=== PATIENT | female | born 1945 | race Hispanic/Latino ===

== ENCOUNTER 2016-10-22 09:18 | Observation (INO) | payer MEDICARE ==
[~2016-10-22] VITALS: Ht 157.5 cm; Wt 93.9 kg
[~2016-10-22 09:18] MED LIST: AUGMENTIN875TAB PO; CLARITIN10 MG PO; CRESTOR40 MG OR; DEPAKOTE ER500 MG OR; DIFLUCAN150 MG PO; DIVALPROEX SOD500 M2 PO; EFFEXOR XR150 MG OR; FERROUS SULF325 M2 OR; FLONASE NASAL50 MCG; HYDROCHLOROT12.5 M1 OR; KETOCONAZOLE2 % EX; LEVETIRACETAM500 MG PO; LEXAPRO20 MG OR; LISINOPRIL20 MG PO; LORTAB 5 OR; METFORMIN1000 MG PO; METFORMIN500 M1 OR; METFORMIN850 MG PO; MIRTAZAPINE15 MG PO; MIRTAZAPINE45 M1 PO; MYRBETRIQ50 MG PO; NAPROSYN500 MG PO; NYSTATIN100000 M2 EX; NYSTATIN100000 M3 TOP; NYSTATIN100000 M4 TOP; PHENOBARB64.8 MG OR; PHENOBARB64.8 MG PO; PHENOBARB97.2 MG OR; PHENYTOIN EX300 MG OR; PROPRANOLOL80 M1 OR; RISPERDAL0.25 MG OR; RISPERDAL0.5 MG PO; RISPERIDONE0.5 MG PO; SERTRALINE50 MG OR; SIMVASTATIN40 MG PO; TERBINAFINE250 M1 OR; TOVIAZ8 MG PO; TRAZODONE50 MG OR; TRIHEXYPHEN2 MG PO; VENLAFAXINE HC150 M1 PO; VENLAFAXINE HCL75 M2 PO; VENLAFAXINE75 MG OR; VESICARE10 MG OR; VESICARE10 MG PO; ZESTRIL10 M1 OR
[2016-10-22] MEDS ORDERED: FAMOTIDINE20 M1 PO (09:40)
[2016-10-22] MEDS ORDERED: FLUOXETINE10 M2 PO (09:41)
[2016-10-22 09:48] LABS: HEMATOCRIT 36.2 % (37.0-47.0); HEMOGLOBIN 11.5 g/dl (12.0-16.0); IMMATURE GRANULOCYTES 0.4 % (0.0-1.0); MEAN CELL VOLUME 90.3 fL CALC (80.0-100.0); MEAN CORPUSCULAR HGB 28.7 pG CALC (26.0-32.0); MEAN CORPUSCULAR HGB CONC 31.8 g/L CALC (32.0-36.0); NEUT# 1.71 thou/uL (2.00-7.15); RED BLOOD COUNT 4.01 mill/uL (4.20-5.60); RED CELL DISTRI WIDTH 13.4 % (11.5-15.5)
[2016-10-22 10:08] LABS: ALBUMIN 3.7 g/dL (3.2-5.0); ALKALINE PHOSPHATASE 49 u/l (38-126); ANION GAP 16 (6-22 (CALC)); BILIRUBIN, TOTAL 0.5 mg/dL (0.0-1.4); BUN 20 mg/dL (8-23); BUN/CREATININE RATIO 35 (12-20 (CALC)); CARBON DIOXIDE 25 mmol/l (22-30); CHLORIDE 104 mmol/l (95-108); CREATININE 0.6 mg/dL (0.5-1.0); GFR > 60 ML/MIN (>=60 (CALC)); GFR FOR AFR.AMER. > 60 ML/MIN (>=60 (CALC)); GLUCOSE 106 mg/dL (82-115); POTASSIUM 4.3 mmol/l (3.5-5.1); SGOT/AST 20 u/l (9-36); SGPT/ALT 15 u/l (11-66); SODIUM 140 mmol/l (137-146); TOTAL PROTEIN 7.5 g/dL (6.3-8.2)
[2016-10-22 10:20] LABS: MYOGLOBIN 36 ng/mL (0 - 62)
[2016-10-22] MEDS ORDERED: PRAVASTATIN10 MG PO (10:44)
[2016-10-22 12:17] VITALS: BP 152/76
[2016-10-22 19:30] VITALS: BP 148/72
[2016-10-22 23:50] VITALS: BP 156/86
[2016-10-23 04:25] VITALS: BP 157/72
[2016-10-23 08:02] VITALS: BP 164/79
[2016-10-23 10:21] VITALS: BP 158/75
[2016-10-23] MEDS ORDERED: AMLODIPINE BESYL5 MG PO (11:59)
[2016-10-23 12:30] VITALS: BP 134/71
== END 2016-10-23 15:07 | disposition home or self-care (01) ==
LOC: ENPENDDIS → ED 09:18 → ED-I 10:21 → ED 10:38 → MS2 10:39
PROVIDERS: Emergency Medicine; ADMIT Internal Medicine; ATTEND Internal Medicine
DX: R07.9 Chest pain, unspecified (principal); I10 Essential (primary) hypertension; E11.9 Type 2 diabetes mellitus without complications; E78.5 Hyperlipidemia, unspecified; F32.9 Major depressive disorder, single episode, unspecified; I25.10 Atherosclerotic heart disease of native coronary artery without angina pectoris; G40.909 Epilepsy, unspecified, not intractable, without status epilepticus; H91.90 Unspecified hearing loss, unspecified ear; F41.9 Anxiety disorder, unspecified; R06.02 Shortness of breath; Z79.84 Long term (current) use of oral hypoglycemic drugs

== ENCOUNTER 2017-02-15 14:21 | Emergency (ER) | payer MEDICARE ==
[~2017-02-15] VITALS: Ht 157.5 cm; Wt 108.0 kg
[~2017-02-15 14:21] MED LIST changes: +AMLODIPINE BESYL5 MG PO; +FAMOTIDINE20 M1 PO; +FLUOXETINE10 M2 PO; +PRAVASTATIN10 MG PO
[2017-02-15] MEDS ORDERED: LISINOPRIL20 MG PO (15:05)
[2017-02-15] MEDS ORDERED: CRESTOR40 MG PO (15:06)
[2017-02-15 15:10] LABS: HEMATOCRIT 38.4 % (37.0-47.0); HEMOGLOBIN 12.3 g/dl (12.0-16.0); IMMATURE GRANULOCYTES 0.2 % (0.0-1.0); MEAN CELL VOLUME 88.5 fL CALC (80.0-100.0); MEAN CORPUSCULAR HGB 28.3 pG CALC (26.0-32.0); NEUT# 2.31 thou/uL (2.00-7.15); RED BLOOD COUNT 4.34 mill/uL (4.20-5.60); RED CELL DISTRI WIDTH 13.2 % (11.5-15.5)
[2017-02-15 15:31] LABS: ANION GAP 19 (6-22 (CALC)); BUN 17 mg/dL (8-23); BUN/CREATININE RATIO 32 (12-20 (CALC)); CALCIUM 9.3 mg/dL (8.4-10.2); CARBON DIOXIDE 23 mmol/l (22-30); CHLORIDE 108 mmol/l (95-108); CREATININE 0.5 mg/dL (0.5-1.0); GFR > 60 ML/MIN (>=60 (CALC)); GFR FOR AFR.AMER. > 60 ML/MIN (>=60 (CALC)); GLUCOSE 136 mg/dL (82-115); POTASSIUM 3.8 mmol/l (3.5-5.1); SODIUM 146 mmol/l (137-146)
[2017-02-15] MEDS ORDERED: VISTARIL 50MG C50 MG PO (16:17)
[2017-02-15 16:43] VITALS: BP 175/73
[2017-02-18] MEDS ORDERED: LISINOPRIL20 MG PO (09:50)
== END 2017-02-15 16:57 | disposition home or self-care (01) ==
LOC: ED 14:21
PROVIDERS: Family Medicine
DX: F41.1 Generalized anxiety disorder (principal); E78.5 Hyperlipidemia, unspecified; I10 Essential (primary) hypertension; E11.9 Type 2 diabetes mellitus without complications; G40.909 Epilepsy, unspecified, not intractable, without status epilepticus

== ENCOUNTER 2017-02-24 06:56 | Day surgery (SDC) | payer MEDICARE ==
[~2017-02-24] VITALS: Ht 153.7 cm; Wt 93.4 kg
[~2017-02-24 06:56] MED LIST changes: +CRESTOR40 MG PO; +VISTARIL 50MG C50 MG PO
[2017-02-24 09:36] VITALS: BP 140/64
== END 2017-02-24 10:17 | disposition home or self-care (01) ==
LOC: ORM 06:56
PROVIDERS: ATTEND Surgery
PROC: 0JB80ZZ Excision of Abdomen Subcutaneous Tissue and Fascia, Open Approach (ICD-10-PCS; principal; 2017-02-24)
DX: D17.39 Benign lipomatous neoplasm of skin and subcutaneous tissue of other sites (principal); E11.9 Type 2 diabetes mellitus without complications; I10 Essential (primary) hypertension; E78.00 Pure hypercholesterolemia, unspecified

== ENCOUNTER 2017-03-02 10:56 | Emergency (ER) | payer MEDICARE ==
[~2017-03-02] VITALS: Ht 153.7 cm; Wt 78.0 kg
[2017-03-02] MEDS ORDERED: CLEOCIN300 MG PO (12:02)
[2017-03-02 12:06] VITALS: BP 148/85
== END 2017-03-02 12:19 | disposition home or self-care (01) ==
LOC: ED 10:56
DX: T81.4XXA Infection following a procedure, initial encounter (principal); I10 Essential (primary) hypertension; E11.9 Type 2 diabetes mellitus without complications; F32.9 Major depressive disorder, single episode, unspecified; E78.00 Pure hypercholesterolemia, unspecified; Y83.8 Other surgical procedures as the cause of abnormal reaction of the patient, or of later complication, without mention of misadventure at the time of the procedure

== ENCOUNTER 2018-04-30 17:18 | Emergency (ER) | payer MEDICARE ==
[~2018-04-30] VITALS: Ht 153.7 cm; Wt 93.0 kg
[~2018-04-30 17:18] MED LIST changes: +CLEOCIN300 MG PO
[2018-04-30 18:56] LABS: HEMATOCRIT 37.8 % (37.0-47.0); IMMATURE GRANULOCYTES 0.4 % (0.0-5.0); MEAN CELL VOLUME 90.2 fL CALC (80.0-100.0); MEAN CORPUSCULAR HGB 28.6 pG CALC (26.0-32.0); MEAN CORPUSCULAR HGB CONC 31.7 g/L CALC (32.0-36.0); NEUT# 4.9 thou/uL (2.00-7.15); RED BLOOD COUNT 4.19 mill/uL (4.20-5.60); RED CELL DISTRI WIDTH 13.2 % (11.5-15.5)
[2018-04-30 19:08] LABS: URINE BILIRUBIN - DIPSTICK NEGATIVE (NEGATIVE); URINE BLOOD DIPSTICK TRACE-INTACT (NEGATIVE); URINE COLOR YELLOW; URINE GLUCOSE - DIPSTICK NEGATIVE (NEGATIVE); URINE KETONE NEGATIVE (NEGATIVE); URINE NITRITE - DIPSTICK NEGATIVE (Negative); URINE PH 5.5 (4.5-8.0); URINE PROTEIN - DIPSTICK NEGATIVE (NEG-TRACE); URINE UROBILINOGEN - DIPSTICK 0.2 E.U./dL (0.2)
[2018-04-30 19:11] LABS: INFLUENZA A NONE DETECTED (NONE DETECT); INFLUENZA B NONE DETECTED (NONE DETECT)
[2018-04-30 19:15] LABS: ALBUMIN 4.1 g/dL (3.2-5.0); ALKALINE PHOSPHATASE 78 u/l (38-126); ANION GAP 15 (6-22 (CALC)); BILIRUBIN, TOTAL 0.3 mg/dL (0.0-1.4); BUN 20 mg/dL (8-23); BUN/CREATININE RATIO 32 (12-20 (CALC)); CARBON DIOXIDE 24 mmol/l (22-30); CHLORIDE 105 mmol/l (95-108); CREATININE 0.6 mg/dL (0.5-1.0); GFR > 60 ML/MIN (>=60 (CALC)); GFR FOR AFR.AMER. > 60 ML/MIN (>=60 (CALC)); POTASSIUM 3.9 mmol/l (3.5-5.1); SGOT/AST 16 u/l (9-36); SODIUM 141 mmol/l (137-146); TOTAL PROTEIN 7.5 g/dL (6.3-8.2)
[2018-04-30 20:03] LABS: URINE CLARITY CLEAR; URINE LEUK ESTERASE SMALL (NEGATIVE)
[2018-04-30 20:09] LABS: URINE SQUAMOUS EPITHELIAL CELL FEW EPI/hpf (0-FEW)
[2018-04-30] MEDS ORDERED: ORPHENADRINE100 MG PO (20:12)
[2018-04-30] MEDS ORDERED: IBUPROFEN600 MG PO (20:12)
[2018-04-30] MEDS ORDERED: CIPROFLOXACN500 MG PO (20:12)
[2018-04-30 20:53] VITALS: BP 119/66
== END 2018-04-30 20:55 | disposition home or self-care (01) ==
LOC: ED 17:18
PROVIDERS: Emergency Medicine
DX: J06.9 Acute upper respiratory infection, unspecified (principal); N39.0 Urinary tract infection, site not specified; E11.9 Type 2 diabetes mellitus without complications; I10 Essential (primary) hypertension

== ENCOUNTER → 2018-08-24 | Outpatient (REF) | payer MEDICARE ==
[~2018-08-24] MED LIST changes: +CIPROFLOXACN500 MG PO; +IBUPROFEN600 MG PO; +ORPHENADRINE100 MG PO
[2018-08-24 10:23] LABS: HEMATOCRIT 35.8 % (37.0-47.0); HEMOGLOBIN 11.3 g/dl (12.0-16.0); IMMATURE GRANULOCYTES 0.4 % (0.0-5.0); MEAN CELL VOLUME 89.5 fL CALC (80.0-100.0); MEAN CORPUSCULAR HGB 28.3 pG CALC (26.0-32.0); MEAN CORPUSCULAR HGB CONC 31.6 g/L CALC (32.0-36.0); NEUT# 2.31 thou/uL (2.00-7.15)
[2018-08-24 12:04] LABS: ALBUMIN 4.1 g/dL (3.2-5.0); ALKALINE PHOSPHATASE 54 u/l (38-126); ANION GAP 14 (6-22 (CALC)); BILIRUBIN, TOTAL 0.4 mg/dL (0.0-1.4); BUN 20 mg/dL (8-23); BUN/CREATININE RATIO 25 (12-20 (CALC)); CALCULATED LDLCHOLESTEROL 27 mg/dL (62-129 (CALC)); CARBON DIOXIDE 27 mmol/l (22-30); CHLORIDE 102 mmol/l (95-108); CREATININE 0.8 mg/dL (0.5-1.0); GFR > 60 ML/MIN (>=60 (CALC)); GFR FOR AFR.AMER. > 60 ML/MIN (>=60 (CALC)); HDL CHOLESTEROL 63 mg/dL (>=40); POTASSIUM 4.1 mmol/l (3.5-5.1); SGOT/AST 12 u/l (9-36); SODIUM 140 mmol/l (137-146); TOTAL CHOLESTEROL 127 mg/dl (0-199); TOTAL PROTEIN 7.1 g/dL (6.3-8.2); TOTAL TRIGLYCERIDES 179 mg/dl (30-149); VLDL CHOLESTROL 36 mg/dl (0-48 (CALC))
[2018-08-24 12:24] LABS: TSH, 3RD GENERATION 0.29 uIU/mL (0.47 - 4.68)
== END | disposition home or self-care (01) ==
LOC: LAB 09:21
PROVIDERS: ATTEND Family Medicine
DX: I10 Essential (primary) hypertension (principal); E11.21 Type 2 diabetes mellitus with diabetic nephropathy; E03.9 Hypothyroidism, unspecified

== ENCOUNTER 2019-08-24 | Emergency (ER) | payer MEDICARE ==
[2019-08-24 08:31] LABS: HEMATOCRIT 32.8 % (37.0-47.0); HEMOGLOBIN 10.3 g/dl (12.0-16.0); IMMATURE GRANULOCYTES 0.2 % (0.0-5.0); MEAN CELL VOLUME 90.1 fL CALC (80.0-100.0); MEAN CORPUSCULAR HGB 28.3 pG CALC (26.0-32.0); MEAN CORPUSCULAR HGB CONC 31.4 g/L CALC (32.0-36.0); NEUT# 2.03 thou/uL (2.00-7.15); RED BLOOD COUNT 3.64 mill/uL (4.20-5.60); RED CELL DISTRI WIDTH 13.7 % (11.5-15.5)
[2019-08-24 09:04] LABS: ANION GAP 11 (6-22 (CALC)); BUN 17 mg/dL (8-23); BUN/CREATININE RATIO 33 (12-20 (CALC)); CARBON DIOXIDE 26 mmol/l (22-30); CHLORIDE 107 mmol/l (95-108); CREATININE 0.5 mg/dL (0.5-1.0); GFR > 60 ML/MIN (>=60 (CALC)); GFR FOR AFR.AMER. > 60 ML/MIN (>=60 (CALC)); POTASSIUM 3.7 mmol/l (3.5-5.1); SODIUM 139 mmol/l (137-146)
== END 2019-08-24 10:27 | disposition home or self-care (01) ==
PROVIDERS: Family Medicine
DX: S09.90XA Unspecified injury of head, initial encounter (principal); M54.2 Cervicalgia; M25.511 Pain in right shoulder; E11.9 Type 2 diabetes mellitus without complications; I10 Essential (primary) hypertension; W06.XXXA Fall from bed, initial encounter; Y92.003 Bedroom of unspecified non-institutional (private) residence as the place of occurrence of the external cause; Z79.84 Long term (current) use of oral hypoglycemic drugs